=== PATIENT | female | born 1980 | race African-American/Black ===

== ENCOUNTER 2021-03-08 09:54 | Outpatient (CLI) | payer OTHER ==
[2021-03-08] MEDS ORDERED: GADOTERATE MEGLUMINE 7.5 MMOL/15 ML VIAL IV ONE ×2 (10:15→10:45)
== END 2021-03-08 20:52 | disposition home or self-care (01) ==
LOC: SMI 09:54
PROVIDERS: ATTEND Specialist
DX: N85.2 Hypertrophy of uterus (principal); D25.9 Leiomyoma of uterus, unspecified; N85.9 Noninflammatory disorder of uterus, unspecified; N32.89 Other specified disorders of bladder
CPT/HCPCS: 72197; A9575

== ENCOUNTER 2021-05-14 12:00 | Outpatient (CLI) | payer OTHER, SELFPAY ==
[~2021-05-14] VITALS: Ht 162.6 cm; Wt 97.5 kg
== END 2021-05-14 13:00 | disposition home or self-care (01) ==
LOC: SLB 12:00 → EDSTATUS 05-16 07:30
PROVIDERS: ATTEND Specialist
DX: Z01.818 Encounter for other preprocedural examination (principal); D25.1 Intramural leiomyoma of uterus; N92.0 Excessive and frequent menstruation with regular cycle; N94.6 Dysmenorrhea, unspecified; R10.2 Pelvic and perineal pain; Z20.822 Contact with and (suspected) exposure to COVID-19
CPT/HCPCS: 36415

== ENCOUNTER 2021-06-27 05:35 | Day surgery (SDC) | payer OTHER, SELFPAY ==
[~2021-06-27] VITALS: Ht 162.6 cm; Wt 95.3 kg
[2021-06-27 06:46] LABS: HCG,QUAL RESULT NEGATIVE (NEGATIVE)
[2021-06-27] MEDS ORDERED: VASOPRESSIN 20 UNITS/ML VIAL IV ONE (06:59)
[2021-06-27] MEDS ORDERED: CEFAZOLIN SOD 2 GM in D5W 50 ML IV ONE (07:00)
[2021-06-27] MEDS ORDERED: MIDAZOLAM HCL 5 MG/5 ML VIAL IVP ONE (07:42)
[2021-06-27] MEDS ORDERED: PROPOFOL 200MG/ 20ML VIAL (DIPRIVAN) IV ONE (07:42)
[2021-06-27] MEDS ORDERED: WATER FOR IRRIGATION,STERILE 1,000 ML IRRIG.SOLN IR ONE (07:42)
[2021-06-27] MEDS ORDERED: ONDANSETRON HCL 4 MG/2 ML VIAL IVP ONE (07:42)
[2021-06-27] MEDS ORDERED: KETOROLAC TROMETHAMINE 30 MG VIAL IVP ONE (07:42)
[2021-06-27] MEDS ORDERED: ROCURONIUM BROMIDE 10 MG/ML (ZEMURON) IV ONE (07:42)
[2021-06-27] MEDS ORDERED: DEXAMETHASONE SOD PHOSPHATE 4 MG/ML VIAL IVP ONE (07:42)
[2021-06-27] MEDS ORDERED: LR 1,000 ML IV.SOLN IV ONE (07:42)
[2021-06-27] MEDS ORDERED: fentaNYL CITRATE 250 MCG/5 ML AMP IV ONE (07:42)
[2021-06-27] MEDS ORDERED: SUGAMMADEX SODIUM 200 MG/2 ML VIAL IV ONE (07:42)
[2021-06-27] MEDS ORDERED: DESFLURANE 15 MIN GAS INH ONE (07:42)
[2021-06-27] MEDS ORDERED: NS IRRIG SOLN 1000 ML IR ONE (07:42)
[2021-06-27] MEDS ORDERED: NS 1000 ML IV.SOLN IV ONE (07:42)
[2021-06-27] MEDS ORDERED: METOCLOPRAMIDE HCL 10 MG/2 ML VIAL IVP PRN (08:00)
[2021-06-27] MEDS ORDERED: LABETALOL 100 MG/ 20ML VIAL IVP PRN (08:00)
[2021-06-27] MEDS ORDERED: HYDROmorphone 1 MG/ML INJ. CARTRIDGE IVP PRN ×2 (08:00)
[2021-06-27] MEDS ORDERED: MEPERIDINE HCL/PF 25 MG/ML DISP.SYRIN IVP PRN (08:00)
[2021-06-27] MEDS ORDERED: LR 1,000 ML IV SCH (08:00)
[2021-06-27] MEDS ORDERED: MIDAZOLAM HCL 2 MG/2 ML VIAL (VERSED) IVP PRN (08:00)
[2021-06-27] MEDS ORDERED: hydrALAZINE HCL 20 MG/ML VIAL IVP PRN (08:00)
[2021-06-27] MEDS ORDERED: ACETAMINOPHEN I.V. 1000 MG 100 ML IV ONE (08:56)
[2021-06-27] MEDS ORDERED: HYDROcodone/ACETAMIN 5-325 MG TAB (NORCO/ VICODIN) PO PRN (11:30)
[2021-06-27] MEDS ORDERED: OXYCODONE/ACETAMINOPHEN 5-325 TABLET PO PRN ×2 (11:30)
[2021-06-27] MEDS: HYDROmorphone 1 MG/ML INJ. CARTRIDGE ONE ×2 (11:52→12:00)
[2021-06-27] MEDS ORDERED: CEFAZOLIN 2 GM IVPB PREMIX 50 ML IV ONE (14:11)
[2021-06-27 14:18] VITALS: BP_SYST 141
[2021-06-27] MEDS ORDERED: HYDROmorphone 1 MG/ML INJ. CARTRIDGE ONE (15:10)
[2021-06-27] MEDS ORDERED: ONDANSETRON HCL 4 MG/2 ML VIAL ONE (15:57)
== END 2021-06-27 17:10 | disposition home or self-care (01) ==
LOC: SDS 05:35 → SMU 05:35 → MERGE 05:35 → SDS 17:10
PROVIDERS: ATTEND Specialist
DX: N93.9 Abnormal uterine and vaginal bleeding, unspecified (principal); D25.9 Leiomyoma of uterus, unspecified; Z79.899 Other long term (current) drug therapy; Z20.822 Contact with and (suspected) exposure to COVID-19
CPT/HCPCS: 36415; 58545; 64488; 84703; 87426; 88305; J0131; J0690 ×2; J1100; J1170; J1885; J2250; J2405; J2704; J3010; J3490 ×2; J7030; J7060; J7120; S2900; E0190